=== PATIENT | female | born 1945 | race Caucasian/White ===

== ENCOUNTER 2020-03-29 09:38 | Outpatient (CLI) | payer MEDICARE, SELFPAY ==
--- NOTE | ~2020-03-29 | MM_ITS ---
EXAMINATION: MM screening [facility] BI w dino HISTORY: Screening mammogram TECHNIQUE: Craniocaudal and mediolateral oblique 3-D tomosynthesis images were obtained and synthetic 2-D images were generated. CAD analysis was submitted and interpreted. COMPARISON: 03/24/2019, 03/13/2018, 03/10/2017 bilateral digital screening mammogram examinations BREAST PARENCHYMAL COMPOSITION: The breasts are heterogeneously dense, which may obscure small masses . FINDINGS: Numerous bilateral benign-appearing calcifications are again noted. There is no evidence of suspicious mass, calcification, or architectural distortion to suggest malignancy in either breast. There has been no suspicious interval change. IMPRESSION: 1. No mammographic evidence of malignancy. 2. Recommend routine screening mammography in one year. BI-RADS Category 2: Benign finding(s). Reviewed, dictated and finalized at location A.
== END 2020-03-29 09:39 | disposition home or self-care (01) ==
LOC: ANHIMG 09:41
PROVIDERS: PCP Family Medicine; Visit Provider Obstetrics & Gynecology
DX: Z12.31 Encounter for screening mammogram for malignant neoplasm of breast (principal)
CPT/HCPCS: 77063; 77067

== ENCOUNTER 2021-04-04 11:00 | Outpatient (CLI) | payer MEDICARE, SELFPAY ==
--- NOTE | ~2021-04-04 | MM_ITS ---
EXAMINATION: MM screening teddy BI w dino HISTORY: Screening mammogram TECHNIQUE: Craniocaudal and mediolateral oblique 3-D tomosynthesis images were obtained and synthetic 2-D images were generated. CAD analysis was submitted and interpreted. COMPARISON: No prior mammogram is available for comparison at this institution. BREAST PARENCHYMAL COMPOSITION: The breasts are heterogeneously dense, which may obscure small masses . FINDINGS: Again noted are multiple bilateral benign calcifications. There is no evidence of suspiciou s mass, calcification, or architectural distortion to suggest malignancy in either breast. There has been no suspicious interval change. IMPRESSION: 1. No mammographic evidence of malignancy. 2. Recommend routine screening mammography in one year. BI-RADS Category 2: Benign finding(s). Reviewed, dictated and finalized at location A.
== END 2021-04-04 11:01 | disposition home or self-care (01) ==
LOC: ANHIMG 11:01
PROVIDERS: PCP Family Medicine; Visit Provider Obstetrics & Gynecology
DX: Z12.31 Encounter for screening mammogram for malignant neoplasm of breast (principal)
CPT/HCPCS: 77063; 77067

== ENCOUNTER 2021-05-24 12:32 | Outpatient (CLI) | payer MEDICARE, SELFPAY ==
--- NOTE | ~2021-05-24 | DEXA_ITS ---
Bone Density Report Name: RERE CALIXTO Age: 75 Sex: Female Ethnicity: White Date of : 1945 Indication: osteopenia; monitoring treatment; parental hip fracture; height loss; hysterectomy; Referring Provider: BRIGIDA LEIJA Study: Bone densitometry was performed. Exam Date: May 24, 2021 Accession number: [id number] Bone Density: Region BMD T-score Z-score Classification AP Spine (L1, L4) 0.915 -1.1 1.2 Osteopenia Femoral Neck (Left) 0.619 -2.1 -0.1 Osteopenia Total Hip (Left) 0.744 -1.6 0.1 Osteopenia Total Hip Bilateral Avg 0.716 -1.8 -0.2 Osteopenia Femoral Neck (Right) 0.613 -2.1 -0.1 Osteopenia Total Hip (Right) 0.686 -2.1 -0.4 Osteopenia World Health Organization criteria for BMD impression classify patients as: Normal (T-score at or above -1.0), Osteopenia (T-score between -1.0 and -2.5), or Osteoporosis (T-score at or below -2.5). 10-year Fracture Risk: FRAX not reported because: Treated for osteoporosis Previous Exams: Region Exam Age BMD T-score BMD Change BMD Change Date g/cm2 vs Baseline vs Previous AP Spine(L1, L4) 05/24/2021 75 0.915 -1.1 -0.021(-2.2%)# 0.011(1.2%) 03/24/2019 73 0.904 -1.2 -0.032(-3.4%)# 0.003(0.3%) 03/10/2017 71 0.901 -1.2 -0.034(-3.7%)# -0.003(-0.4%) 02/25/2014 68 0.905 -1.2 -0.031(-3.3%)# -0.002(-0.2%)# 02/05/2012 66 0.907 -1.2 -0.029(-3.1%)# -0.040(-4.3%)# 12/25/2009 64 0.947 -0.8 0.011(1.2%) -0.021(-2.1%) 12/17/2007 62 0.968 -0.6 0.032(3.4%)* 0.001(0.1%) 11/07/2005 60 0.966 -0.6 0.031(3.3%)* 0.053(5.8%)* 01/09/2004 58 0.913 -1.1 -0.023(-2.4%) -0.023(-2.4%) 01/06/2003 57 0.936 -0.9 Total Hip(Left) 05/24/2021 75 0.744 -1.6 -0.031(-4.0%)# 0.018(2.5%) 03/24/2019 73 0.726 -1.8 -0.049(-6.3%)# -0.005(-0.7%) 03/10/2017 71 0.731 -1.7 -0.044(-5.7%)# -0.035(-4.5%)* 02/25/2014 68 0.766 -1.4 -0.009(-1.2%)# -0.023(-2.9%)# 02/05/2012 66 0.789 -1.3 0.014(1.8%)# 0.013(1.7%)# 12/25/2009 64 0.776 -1.4 0.001(0.1%) -0.031(-3.9%)* 12/17/2007 62 0.808 -1.1 0.033(4.2%)* 0.047(6.2%)* 11/07/2005 60 0.760 -1.5 -0.015(-1.9%) -0.014(-1.8%) 01/09/2004 58 0.774 -1.4 -0.001(-0.1%) -0.001(-0.1%) 01/06/2003 57 0.775 -1.4 Total Hip(Right) 05/24/2021 75 0.686 -2.1 -0.086(-11.1%) -0.051(-6.9%)* 03/24/2019 73 0.738 -1.7 -0.034(-4.4%)# -0.005(-0.7%) 03/10/2017 71 0.743 -1.6 -0.029(-3.8%)# -0.005(-0.6%) 02/25/2014 68 0.748 -1.6 -0.024(-3.1%)# -0.034(-4.4%)# 02/05/2012 66 0.782 -1.3 0.010(1.3%)# 0.028(3.6%)# 12/25/2009 64 0.754 -1.5 -0.017(
== END 2021-05-24 12:33 | disposition home or self-care (01) ==
LOC: ANHIMG 12:34
PROVIDERS: PCP Family Medicine; Visit Provider Family Medicine
DX: M85.88 Other specified disorders of bone density and structure, other site (principal); M85.852 Other specified disorders of bone density and structure, left thigh; M85.851 Other specified disorders of bone density and structure, right thigh
CPT/HCPCS: 77080

== ENCOUNTER 2021-11-19 08:48 | Outpatient (CLI) | payer MEDICARE, SELFPAY ==
--- NOTE | 2021-11-19 08:58 | ECHO_ITS ---
Patient Info Name: Callie Diallo Age: 76 years : 1945 Gender: Female Ht: 64 in Wt: 116 lbs BSA: 1.54 m2 HR: 65 bpm BP: 131 / 73 mmHg Heart Rhythm: Sinus Rhythm Technical Quality: Good Exam Date: 11/19/2021 9:09 AM Exam Location: [facility] Patient Status: Outpatient Admit Date: 11/19/2021 Staff Ordering Physician: Kaleb Garcia PA-C Network Security Officer: Zaida Delarosa RDCS Attending Provider: Kaleb Garcia PA-C Referring Physician: Jose REYES; Exam Type: CA echo doppler color flow Study Info Indications I35.0 - Nonrheumatic aortic (valve) stenosis Complete two-dimensional, color flow and Doppler transthoracic echocardiogram is performed. Summary 1. Complete two-dimensional, color flow and Doppler transthoracic echocardiogram is performed. 2. There is mild concentric increased left ventricular wall thickness. 3. Left ventricular systolic function is normal, estimated at 55-60%. 4. Left atrial chamber dimension is mildly enlarged. 5. There is moderate to severe aortic valve stenosis with a peak velocity of 330 cm/s, mean gradient of 27 mmHg, and aortic valve area of 0.9 cm2. Left Ventricle Left ventricular chamber dimension is normal. Left ventricular systolic function is normal, estimated at 55-60%. There is mild concentric increased left ventricular wall thickness. The left ventricular diastolic function is grade I diastolic dysfunction. Right Ventricle Right ventricular chamber dimension is normal. Left Atria Left atrial chamber dimension is mildly enlarged. Right Atria Right atrial chamber dimension is normal. Aortic Valve The aortic valve is trileaflet. There is moderate aortic valve sclerosis. There is moderate to severe aortic valve stenosis with a peak velocity of 330 cm/s, mean gradient of 27 mmHg, and aortic valve area of 0.9 cm2. Pulmonic Valve The pulmonic valve is normal. Mitral Valve The mitral valve has normal leaflets. There is trace mitral valve regurgitation. The mitral valve annulus is mildly calcified. Tricuspid Valve The tricuspid valve leaflets are normal. There is mild tricuspid valve regurgitation. Pericardium/Pleural The pericardium appears normal. Aorta The aortic root size at the sinus of Valsalva is normal. Left Ventricular Outflow Tract Name Value Normal LVOT 2D LVOT Diameter 2.0 cm LVOT Doppler LVOT Peak Gradient 3 mmHg LVOT Mean Gradient 1 mmHg LVOT VTI 24 cm LVOT VTI/AV VTI Ratio 0.3 LVOT Stroke Volume 76 ml LVOT CO 4.1 l/min LVOT CI 2.7 l/min/m2 Pulmonic Valve Name Value Normal RVOT Doppler RVOT Peak Gradient 3 mmHg PV Doppler ----
== END 2021-11-19 08:49 | disposition home or self-care (01) ==
LOC: ANHCARD 08:50
PROVIDERS: PCP Family Medicine; Visit Provider Physician Assistant
DX: I35.0 Nonrheumatic aortic (valve) stenosis (principal)
CPT/HCPCS: 93306

== ENCOUNTER 2022-08-12 13:30 | Outpatient (RCR) | payer MEDICARE, SELFPAY ==
[2022-05-28 11:50] VITALS: PULSE 95
== END 2022-08-12 14:03 | disposition home or self-care (01) ==
LOC: ANHCPREHAB 13:30
PROVIDERS: PCP Family Medicine; Visit Provider Internal Medicine Cardiovascular Disease
DX: Z95.2 Presence of prosthetic heart valve (principal)
CPT/HCPCS: 93798

== ENCOUNTER 2022-09-04 09:58 | Outpatient (CLI) | payer MEDICARE, SELFPAY ==
--- NOTE | ~2022-09-04 | MM_ITS ---
EXAMINATION: MM screening [facility] BI w dino HISTORY: Screening TECHNIQUE: Craniocaudal and mediolateral oblique 3-D tomosynthesis images were obtained and synthetic 2-D images were generated. CAD analysis was submitted and interpreted. COMPARISON: Comparison to multiple prior studies sequentially, with oldest reviewed study dated 03/06. BREAST PARENCHYMAL COMPOSITION: The breasts are heterogeneously dense, which may obscure small masses FINDINGS: There are benign bilateral breast calcifications. Bilateral breast asymmetries are stable. There is no evidence of suspicious mass, calcification, or architectural distortion to suggest malign jennifer in either breast. There has been no suspicious interval change. IMPRESSION: 1. No mammographic evidence of malignancy. 2. Recommend routine screening mammography in one year. BI-RADS Category 2: Benign finding(s). Reviewed, dictated and finalized at location A.
== END 2022-09-04 09:59 | disposition home or self-care (01) ==
LOC: ANHIMG 10:01
PROVIDERS: PCP Family Medicine; Visit Provider Family Medicine
DX: Z12.31 Encounter for screening mammogram for malignant neoplasm of breast (principal)
CPT/HCPCS: 77063; 77067

== ENCOUNTER 2023-05-10 08:18 | Emergency (ER) | payer MEDICARE, SELFPAY ==
[2023-05-10 08:36] VITALS: BP 141/72; PULSE 100; RESP 16; TEMP 37.1; O2SAT 100
--- NOTE | 2023-05-10 08:56 | ED.URI ---
HPI - URI/Sore Throat General Chief Complaint: Upper Respiratory Infection Stated Complaint: Laryngitis;Earache;Toothache Time Seen by Provider: 05/10/23 08:57 Source: patient, RN notes reviewed and old records reviewed Mode of arrival: ambulatory Limitations: no limitations History of Present Illness HPI Narrative: 87-year-old female who presents to [facility] with complaints feeling ill since Friday with increased symptoms since . Patient reports she has cough, sore throat which did resolve, headache some ear pain/pressure,laryngitis, even some pain in her teeth,.Patient reports that she took a home COVID test on Friday which was negative. Patient reports that cough has been productive of some yellowish mucous.Patient reports no known illl contacts but was in [place] last week MD elicited complaint: cough and sore throat Pertinent past history: other (TAVR heart valve one year ago.) Onset (ago): day(s) (4-5 days) Severity: moderate Pain scale (0-10): 2 Description of mucous: yellow Able to tolerate fluids by mouth: Yes Treatments prior to arrival: other (sinus steam) Related Data Home Medications Medication Instructions Recorded Confirmed aspirin 81 mg tablet,delayed 81 mg PO DAILY 04/13/19 07/17/22 release omega-3 fatty acids 1,000 mg 1,000 mg PO DAILY 04/14/20 07/17/22 capsule (Fish Oil Concentrate) docusate sodium 250 mg capsule 250 mg PO DAILY 03/13/22 07/17/22 famotidine 20 mg tablet 20 mg PO DAILY 03/13/22 07/17/22 ijusiyqh-bpy-bcqun ac 400 tablet PO 03/13/22 07/17/22 mcg-calcium carb 500 mg-vit K1 20 mcg tablet (Women's 50 Plus Multivitamin) ascorbate calcium (vitamin C) 500 500 mg PO DAILY 01/22/23 mg tablet Calcium + VitD Supplement PO 02/27/23 Allergies Allergy/AdvReac Type Severity Reaction Status Date / Time No Known Allergies Allergy Verified 01/22/23 13:01 Review of Systems Review of Systems: CONSTITUTIONAL: Reports malaise, no chills, sweats, or fever. EYES: Denies visual changes, redness, or discharge. ENT: Reports rhinorrhea, congestion, sinus pain, otalgia and resolved sore throat. CARDIOVASCULAR: Denies chest pain, palpitations, or edema. RESPIRATORY: Reports cough.? Denies dyspnea. GASTROINTESTINAL: Denies abdominal pain, nausea, vomiting, diarrhea SKIN: Denies rash or itching. MUSCULOSKELETAL:reports some myalgia. NEUROLOGIC: Positive for headache. All systems reviewed & are unremarkable except as noted in HPI and below PMFSH Past Medical History Medical History Aortic stenosis Hyperlipidemia Hypertension Surgical History Surgical History Aortic valve replaced H/O right heart catheterization H/O tubal ligation H/O: hysterectomy Hx of tonsillectomy Family History Family History Mother Family history of elevated blood lipids Hypertension Father Family history of chronic obstructive pulmonary disease, Onset Age: 87 Cerebrovascular accident Other No family history of cardiovascular disease No family history of malignant neoplasm Social History Social History Smoking status: Never smoker Second hand tobacco smoke exposure: No Alcohol intake: never Substance use type: does not use Lack of Transportation: No Lack of Food: Never True Current Housing: I Have Housing Concerned About Future Housing: No Difficulty Paying Gas/Electric Bills: No Difficulty Paying for Meds: No Currently Unemployed: No Education: Bachelor's Degree Difficulty w/ Childcare or Family Care: No Comments At time of signature, agree with nursing past medical, surgical, social and family history. There is no relevant family history pertinent to the presenting complaint Exam Narrative: GEN
== END 2023-05-10 09:18 | disposition home or self-care (01) ==
PROVIDERS: Emergency Provider Registered Nurse; PCP Family Medicine
DX: J06.9 Acute upper respiratory infection, unspecified (principal); R05.9 Cough, unspecified; Z20.822 Contact with and (suspected) exposure to COVID-19; E78.5 Hyperlipidemia, unspecified; I10 Essential (primary) hypertension; Z95.2 Presence of prosthetic heart valve
CPT/HCPCS: 87426; 87804; 99213; C9803; G0463

== ENCOUNTER 2023-07-18 09:40 | Outpatient (CLI) | payer MEDICARE, SELFPAY ==
--- NOTE | ~2023-07-18 | DEXA_ITS ---
Bone Density Report Name: RERE CALIXTO Age: 78 Sex: Female Ethnicity: White Date of : 1945 Indication: postmenopausal; screening for osteoporosis; height loss; hysterectomy; Referring Provider: GAYLA KC Study: Bone densitometry was performed. Exam Date: July 18, 2023 Accession number: [id number] Bone Density: Region BMD T-score Z-score Classification AP Spine(L1-L4) 0.998 -0.4 2.0 Normal Femoral Neck (Left) 0.625 -2.0 0.1 Osteopenia Total Hip (Left) 0.727 -1.8 0.1 Osteopenia Femoral Neck (Right) 0.624 -2.0 0.1 Osteopenia Total Hip (Right) 0.710 -1.9 -0.1 Osteopenia Total Hip Mean 0.718 -1.9 0.0 Osteopenia World Health Organization criteria for BMD impression classify patients as: Normal (T-score at or above -1.0), Osteopenia (T-score between -1.0 and -2.5), or Osteoporosis (T-score at or below -2.5). 10-year Fracture Risk(1): Major Osteoporotic Fracture 12% Hip Fracture 3.1% Reported Risk Factors: [place] (), Neck BMD=0.625, BMI=20.6 (1) FRAX(R) Version 3.08. Fracture probability calculated for an untreated patient. Fracture probability may be lower if the patient has received treatment. Clinical Information Provided by Patient: Has used the following medications: Vitamin D, Calcium Has the following medical conditions: Hysterectomy Patient maximum height was 65.5 Menopause Age: 52 Onset of menses at age 14 Number of children 3 Impression: The patient has low bone mass, based on the Left Femoral Neck T-score. The patient has an estimated ten-year risk of hip fracture of 3.1% and an estimated ten-year risk of major fracture of 12%, based on the WHO FRAX algorithm. Discussion: BONE DENSITY IS LOW AT ONE OR MORE SKELETAL SITES. THE PATIENT'S BMD AND CLINICAL RISK FACTORS CONTRIBUTE TO THIS PATIENT'S INCREASED RISK OF FRACTURE. This patient's lowest T-score is low at one or more skeletal sites. It meets the World Health Organization's (WHO) criteria for ?low bone mass? (T-score between -1.0 and -2.5). The patient's 10-year risk of hip fracture as calculated by FRAX exceeds the threshold where pharmacological therapy is recommended by the National Osteoporosis Foundation (NOF). However, all treatment decisions require clinical judgment and consideration of individual patient factors, including patient preferences, comorbidities, previous drug use, risk factors not captured in the FRAX model (e.g., frailty, falls, vitamin D deficiency, increased bone turnover, interval significant decline in bone density) and possible under or overestimation of fracture risk by FRAX. The patient should follow a healthful lifestyle (good nutrition with adequate calcium and vitamin D, and appropriate weight-bearing exercise). Follow-Up: Consider a repeat BMD and Vert
== END 2023-07-18 09:41 | disposition home or self-care (01) ==
PROVIDERS: PCP Family Medicine; Visit Provider Family Medicine
DX: Z78.0 Asymptomatic menopausal state (principal); M85.852 Other specified disorders of bone density and structure, left thigh; M85.851 Other specified disorders of bone density and structure, right thigh
CPT/HCPCS: 77080

== ENCOUNTER 2023-10-01 14:19 | Outpatient (CLI) | payer MEDICARE, SELFPAY ==
--- NOTE | ~2023-10-01 | MM_ITS ---
EXAMINATION: MM screening teddy BI w dino HISTORY: Screening mammogram TECHNIQUE: Craniocaudal and mediolateral oblique 3-D tomosynthesis images were obtained and synthetic 2-D images were generated. CAD analysis was submitted and interpreted. COMPARISON: 09/04/2022, 04/04/2021 bilateral screening mammogram examinations BREAST PARENCHYMAL COMPOSITION: The breasts are heterogeneously dense, which may obscure small masses . FINDINGS: Numerous bilateral benign calcifications are again noted. There is no evidence of suspiciou s mass, calcification, or architectural distortion to suggest malignancy in either breast. There has been no suspicious interval change. IMPRESSION: 1. Bilateral benign calcifications. No mammographic evidence of malignancy. 2. Recommend routine screening mammography in one year. BI-RADS Category 2: Benign finding(s). Reviewed, dictated and finalized at location A.
== END 2023-10-01 14:20 | disposition home or self-care (01) ==
LOC: ANHIMG 14:21
PROVIDERS: PCP Family Medicine; Visit Provider Family Medicine
DX: Z12.31 Encounter for screening mammogram for malignant neoplasm of breast (principal)
CPT/HCPCS: 77063; 77067

== ENCOUNTER 2023-12-10 13:39 | Outpatient (CLI) | payer MEDICARE, SELFPAY | END 2023-12-10 13:40 | disposition home or self-care (01) | LOC: ANHAUDASC 13:40 | PROVIDERS: PCP Family Medicine; Visit Provider Otolaryngology | DX: H90.3 Sensorineural hearing loss, bilateral (principal); H69.90 Unspecified Eustachian tube disorder, unspecified ear; N18.31 Chronic kidney disease, stage 3a | CPT/HCPCS: 92557; 92567 ==

== ENCOUNTER 2024-07-23 08:07 | Emergency (ER) | payer MEDICARE, SELFPAY ==
[2024-07-23 08:23] VITALS: BP 126/44; PULSE 77; RESP 16; TEMP 36.6; O2SAT 100
--- NOTE | 2024-07-23 08:27 | ED.URI ---
HPI - URI/Sore Throat General Chief Complaint: Upper Respiratory Infection Stated Complaint: COUGH/CHEST PAIN Time Seen by Provider: 07/23/24 08:27 Source: patient Mode of arrival: ambulatory Limitations: no limitations History of Present Illness HPI Narrative: 79-year-old female presents with complaint of cough, chest congestion starting yesterday morning. Today woke up around 4:00 a.m. cough worse with chest pain with coughing. Was able to cough up some clear sputum. Afebrile. Denies body aches, chills, fatigue. No nasal congestion or sore throat. Denies nausea vomiting diarrhea. Has not started any ywgw-lue-fhonblb medications to treat cough. Does have an albuterol inhaler for the last time she had bronchitis. All systems reviewed and negative except as noted above. Related Data Home Medications ?Medication ?Instructions ?Recorded ?Confirmed ?Last Taken ?Type aspirin 81 mg tablet,delayed 81 mg PO DAILY 04/13/19 02/12/24 Unknown History release omega-3 fatty acids 1,000 mg 1,000 mg PO DAILY 04/14/20 02/12/24 Unknown History capsule (Fish Oil Concentrate) famotidine 20 mg tablet 20 mg PO DAILY 03/13/22 02/12/24 Unknown History ywlwkydo-mnc-lmamp ac 400 tablet PO 03/13/22 02/12/24 Unknown History mcg-calcium carb 500 mg-vit K1 20 mcg tablet (Women's 50 Plus Multivitamin) ascorbate calcium (vitamin C) 500 500 mg PO DAILY 01/22/23 02/12/24 Unknown History mg tablet Calcium + VitD Supplement PO 02/27/23 02/12/24 Unknown History Saccharomyces boulardii 250 mg 250 mg PO BID 12/02/23 02/12/24 Unknown History capsule (Daily Probiotic (S. boulardii)) coQ10 (ubiquinol) 100 mg capsule 100 mg PO ONCE 02/12/24 02/12/24 Unknown History (Qunol Timothy CoQ10) cranberry 1,000 mg capsule 1,500 mg PO ONCE 02/12/24 02/12/24 Unknown History magnesium 200 mg tablet 400 mg PO DAILY 02/12/24 02/12/24 Unknown History prevagen PO 02/12/24 02/12/24 Unknown History apixaban 5 mg tablet (Eliquis) 10 mg PO BID 05/14/24 Unknown History Allergies Allergy/AdvReac Type Severity Reaction Status Date / Time No Known Allergies Allergy Verified 07/23/24 08:18 Review of Systems Review of Systems: CONSTITUTIONAL: Denies fever, chills, or sweats. EYES: Denies visual changes, redness, or discharge. ENT: Denies rhinorrhea, congestion, sore throat, or otalgia. CARDIOVASCULAR: Denies chest pain, palpitations, or edema. RESPIRATORY: Reports cough. Denies dyspnea. GASTROINTESTINAL: Denies abdominal pain, nausea, vomiting, or diarrhea. GENITOURINARY: Denies dysuria or hematuria. SKIN: Denies rash or itching. MUSCULOSKELETAL: Denies back pain, joint pain, or myalgia. NEUROLOGIC: Denies headache, numbness, or weakness. PSYCHIATRIC: Denies anxiety or depression. All other systems reviewed are negative, except as documented in HPI. COUNT INCLUDES THE [facility] Past Medical History Medical History Acute bronchitis Aortic stenosis Cataracts, bilateral Hyperlipidemia Hypertension Sinusitis, acute Surgical History Surgical History Aortic valve replaced H/O right heart catheterization H/O tubal ligation H/O: hysterectomy Hx of tonsillectomy Family History Family History Mother Family history of elevated blood lipids Hypertension Father Family history of chronic obstructive pulmonary disease, Onset Age: 87 Cerebrovascular accident Other No family history of cardiovascular disease No family history of malignant neoplasm Social History Social History Smoking status: Never smoker Second hand tobacco smoke exposure: No Alcohol intake: never Substance use type: does not use Do You Feel Safe in your Home?: Yes Lack of Transportation: No Lack of Food: Never True Current Housing: I Have Housing Concerned About Future Housing: No Difficulty Paying Gas/Electric Bills: No Difficulty Paying for Meds: No Currently Unemployed: No Education: Bachelor's Degree Difficulty w/ Childcare or Family Care: No Comments At time of signature, agree with nursing past medical, surgical, social and family history. There is no relevant family history pertinent to the presenting complaint. Exam Narrative: GENERAL: This is a well-nourished, well-developed patient, in no apparent distress. HEAD: normocephalic, atraumatic. EYES: PERRL. Sclera clear/white. Vision is grossly intact. EARS: External ears normal, auditory canals clear and without drainage, TMs normal without perforation. Hearing grossly intact. NOSE: External nose normal with no obvious nasal discharge, nares without redness, no rhinorrhea. THROAT: Mucous membranes moist, posterior pharynx clear. NECK: Neck supple, non-tender without lymphadenopathy, masses or thyromegaly. CARDIOVASCULAR: Regular rate and rhythm without murmurs, gallops, or rubs. RESPIRATORY: Mild rhonchi to bilateral lower lung zaragoza on expiration otherwise clear. Breath sounds equal bilaterally. No wheezes, rales. SKIN: warm, Dry, intact with no suspicious lesions or rash, good texture and turgor. NEURO: awake, alert, and oriented to person, place and time. There were no obvious focal neurologic abnormalities. EXTREMITIES: No joint tenderness, effusion, or edema noted. Course Course Level of Care: Express Care Visit Vital Signs Vital signs: Vital Signs Temperature 36.6 C 07/23/24 08:23 Pulse Rate 77 07/23/24 08:23 Respiratory Rate 16 07/23/24 08:23 Blood Pressure 126/44 L 07/23/24 08:23 Pulse Oximetry 100 07/23/24 08:23 Temperature 36.6 C 07/23/24 08:23 Pulse Rate 77 07/23/24 08:23 Respiratory Rate 16 07/23/24 08:23 Blood Pressure 126/44 L 07/23/24 08:23 Pulse Oximetry 100 07/23/24 08:23 Reviewed MDM - URI/Sore Throat MDM Narrative Medical decision making narrative: Patient is well-appearing, nontoxic. No respiratory distress. Vital Signs hemodynamically stable. Will treat patient with antibiotic due to history bronchitis, comorbidities. Patient agrees with plan of care. Please be advised this is a medical document. It is intended for mzzv-xy-cwgg communication. It is written in medical language and may contain unfamiliar abbreviations or verbiage. Medical documents are intended to carry relevant information, facts as evident, and the clinical opinion of the practitioner at the time of the encounter. This report may have been done utilizing a voice recognition system. Attempts have been made to correct errors. However, there may be uncorrected grammatical, spelling, and recognition errors present. The file time of this note does not necessarily represent the time of service. Differential Diagnosis Differential diagnosis: Likely upper respiratory infection, sinusitis, viral infection and bronchitis Discharge Plan Discharge Clinical Impression: Acute bronchitis Patient Disposition: Home, Self-Care Condition: Stable Instructions: Acute Bronchitis (ED) Additional Instructions: Take medications as prescribed. Use albuterol inhaler every 4-6 hours as needed for wheezing, shortness of breath, coughing fit. Take Tylenol every 6-8 hours as needed for pain and fever. Drink plenty of water and rest. Follow-up with your doctor if cough is not improving. Patient Language: Kyrgyz Prescriptions: New benzonatate 200 mg capsule 200 mg PO TID PRN (Reason: cough) Qty: 20 0RF doxycycline hyclate 100 mg capsule 100 mg PO BID 7 Days Qty: 14 0RF No Action omega-3 fatty acids [Fish Oil Concentrate] 1,000 mg capsule 1,000 mg PO DAILY Rx Instructions: 1400 total daily Women's 50 Plus Multivitamin 400 mcg-500 mg calcium-20 mcg tablet PO famotidine 20 mg tablet 20 mg PO DAILY ascorbate calcium (vitamin C) 500 mg tablet 500 mg PO DAILY Saccharomyces boulardii [Daily Probiotic (S. boulardii)] 250 mg capsule 250 mg PO BID magnesium 200 mg tablet 400 mg PO DAILY lisinopril 5 mg tablet See Rx Instructions .ROUTE .COMPLEX Qty: 90 3RF Dose Instruction: TAKE 1 TABLET BY MOUTH EVERY DAY Rx Instructions: take 2.5mg in the AM and 2.5mg in the PM cranberry 1,000 mg capsule 1,500 mg PO ONCE Rx Instructions: administer with meals prevagen PO coQ10 (ubiquinol) [Qunol Timothy CoQ10] 100 mg capsule 100 mg PO ONCE Eliquis 5 mg tablet 10 mg PO BID aspirin 81 mg tablet,delayed release (DR/EC) 81 mg PO DAILY Calcium + VitD Supplement PO ikvlksdm-rmeziogem-BX 3.5-10,000-1 mg/mL-unit/mL-% drops,suspension 4 drp otic (ear) Q8H Qty: 10 2RF atorvastatin 10 mg tablet See Rx Instructions .ROUTE .COMPLEX Qty: 90 3RF Dose Instruction: TAKE 1 TABLET BY MOUTH EVERY DAY Rx Instructions: TAKE 1 TABLET BY MOUTH EVERY DAY Follow-up/Referrals: Radha Herman DO [Primary Care Provider] - Time of Disposition: 08:39
== END 2024-07-23 08:41 | disposition home or self-care (01) ==
PROVIDERS: Emergency Provider Nurse Practitioner Family; PCP Family Medicine
DX: J20.9 Acute bronchitis, unspecified (principal); I35.0 Nonrheumatic aortic (valve) stenosis; I10 Essential (primary) hypertension; E78.5 Hyperlipidemia, unspecified; Z95.2 Presence of prosthetic heart valve; Z79.01 Long term (current) use of anticoagulants
CPT/HCPCS: 99213; G0463

== ENCOUNTER 2024-12-02 13:45 | Outpatient (RCR) | payer MEDICARE, SELFPAY ==
[2024-09-10 15:08] VITALS: BP 140/70; PULSE 55; RESP 16; O2SAT 99
[2024-09-10 15:31] VITALS: PULSE 55
== END 2024-12-02 15:30 | disposition home or self-care (01) ==
LOC: ANHCPREHAB 13:45
PROVIDERS: PCP Family Medicine; Visit Provider Internal Medicine Cardiovascular Disease
DX: Z95.2 Presence of prosthetic heart valve (principal)
CPT/HCPCS: 93798

== ENCOUNTER 2025-01-20 14:17 | Outpatient (CLI) | payer MEDICARE, SELFPAY ==
--- NOTE | ~2025-01-20 | US_ITS ---
EXAM: RENAL ULTRASOUND HISTORY: N18.31 - Chronic kidney disease, stage 3a COMPARISON: None FINDINGS: RIGHT KIDNEY: 9.6 x 5.2 x 5.0 cm. The parenchyma of the right kidney is increased in echogenicity nodular in contour and decreased in c aliber. No hydronephrosis or bulky renal calculi. LEFT KIDNEY: 9.5 x 3.9 x 5.1 cm No hydronephrosis or renal calculi. The parenchyma of the left kidney is increased in echogenicity, and decreased in caliber. BLADDER: Bilateral ureteral jets visualized. IMPRESSION: No hydronephrosis or renal calculi. Findings suggesting medical renal disease. Reviewed, dictated and finalized at location A.
--- OUTSIDE RECORDS SUMMARY | 2025-01-20 14:22 | XMS_ITS | Clinical Summary ---
Author Organization [facility] [address] Address [address] [place] [address] Care Team Providers Care Cvir Tech Name Role Phone Radha Herman DO Primary Care Provider + Bryan Nick MD Unavailable Rusty Zelaya MD Unavailable [phone] Allergies No known active allergies Medications famotidine (PEPCID) 20 mg tabletIndicatio ns:Heartburn Prevention Take 1 tablet (20 mg total) by mouth daily 11/07/2021 Active multivitamin capsuleIndicati ons:Vitamin Deficiency Prevention Take 1 capsule by mouth daily Active calcium carbonate-vitam in D3 2,500 mg (1,000 mg elemental)-800 unit tabletIndicatio ns:Vitamin D Deficiency Take 1 tablet by mouth daily Active ascorbic acid (VITAMIN C) 500 mg tablet,chewable Indications:Vit dejesus C Deficiency Take 2 tablet/chew tab (1,000 mg total) by mouth daily Active Lactobacillus reuteri 100 million cell tablet,chewable Take 1 tablet by mouth daily Active magnesium oxide 400 mg magnesium capsuleIndicati ons:hypomagnese ana luisa Take 200 mg by mouth daily Active aspirin 81 mg enteric coated tabletIndicatio ns:prevention of thrombosis Take 1 tablet (81 mg total) by mouth daily Active omega 6-kdz-asn-fish oil 850-1,400 mg capsuleIndicati ons:hypertrigly ceridemia Take by mouth Active cranberry extract 50 mg tablet,chewable Take by mouth Active ofloxacin (OCUFLOX) 0.3 % ophthalmic solution 1 drop 4 (four) times a day 08/03/2024 Active atorvastatin (LIPITOR) 10 mg tabletIndicatio ns:hyperlipidem ia Take 1 tablet (10 mg total) by mouth daily 90 tablet 3 09/20/2024 Active lisinopriL (PRINIVIL,ZESTR IL) 2.5 mg tablet Take 1 tablet (2.5 mg total) by mouth daily 09/04/2024 Active carvediloL (COREG) 12.5 mg tabletIndicatio ns:hypertension Take 0.5 tablets (6.25 mg total) by mouth 2 (two) times a day with meals 90 tablet 1 11/29/2024 Active Active Problems Patient Care Coordination No te Formatting of this note migh t be different from the original. 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 She underwent TAVR valve using 20 mm Graves Merced 3 Ultra pericardial tissue valve on 04/25/2022. Surveillance echocardiogram from 01/28/2024 showed significantly elevated transaortic velocity at 4 m/sec with elevated mean gradient of 37 mmHg, [id number] aortic regurgitation. Subsequent CT heart confirmed hypoattenuating leaflet thickening (HALT). Patient was initiated on anticoagulation with apixaban. Follow up echo from 06/30/2024 showed very minimal improvement in V max and mean gradient, Peak Velocity of 3.90 m/s and Mean gradient of 34.0 mmHg. Patient describes shortness of breath with minimal activity around the house and has to pause and catch her breath frequently. Exam: Gen: awake and alert, sitting up in chair. 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 Medical [facility] Cardiology [address] [place] [address] Bryan Nick MD 10/22/2024 Results Follow-Up [facility] [address] [facility] [address] [place] [phone] Bryan Nick MD Transthoracic Echo (TTE) Complete W Doppler/CF 10/21/2024 3:00 PM CDT Ancillary Procedure [facility] Card[facility] [address] [place] [phone] S/P aortic valve replacement with bioprosthetic valve from Last 3 Months Immunizations Immunization Administration Dates Next Due Influenza, Quadrivalent, Hig h Dose, Preservative Free, Intrr 02/11/2022,02/05/2021 Influenza, Quadrivalent, Rec ombinant, Egg Free, Preservative Free, Intramuscular 02/25/2019 Influenza, Trivalent, High D ose, Split, Preservative Free, Intramuscular 02/20/2018 TD Preservative Free 08/06/2019 ZOSTER Recombinant 07/26/2019 Surgical History Surgery Date Site/Laterality Comments HYSTERECTOMY 09/23/2016 TUBAL LIGATION 03/20/1979 BLADDER SURGERY 09/23/2016 suspension CARDIAC CATHETERIZATION TONSILLECTOMY CARDIAC VALVE REPLACEMENT 04/25/2022 CATARACT EXTRACTION 03/24&04/01/23 AORTIC VALVE REPLACEMENT 08/11/2024 Redo aortic valve replacement Medical History Medical History Date Comments GERD (gastroesophageal reflux disease) Cataract 12/31/2017 Hypertension 06/09/2008 Nonrheumatic aortic valve stenosis SOBOE (shortness of breath on exertion) Arthritis 2011 Family History Medical History Relation Name Comments COPD Father Tio Lopez Hypertension Father Tio Lopez Stroke Father Tio Lopez Arthritis Mother Pretty Lopez Hypertension Mother Pretty Lopez Relation Name Status Comments Father Tio Lopez Mother Pretty Lopez Social History Tobacco Use Types Packs/Day Years Used Date Smoking Tobacco: Never Passive Smoke Exposure: Never Smokeless Tobacco: Never Tobacco Cessation:Counseling Given: No OASIS D0700: Social Isolation Answer Da te Recorded Frequency of experiencing loneliness or isolatio n Never 09/07/2024 OASIS A1250: Transportation Answer Date Recorded Lack of Transportation (Medical) No 09/07/2024 Lack of Transportation (Non-Medical) No 09/07/2024 Patient Unable or Declines to Respond No 09/07/2024 OASIS B1300: Health Literacy Answer Raj e Recorded Frequency of needing help to read materials from doctor or pharmacy Sometimes 09/07/2024 [facility] Utilities Answer Date Recorded In the past 12 months has e electric, gas, oil, or water [employer] threatened to shut off services in your home? No 08/12/2024 Social Connection and Isolation Panel Answer Date Recorded In a typical week, how many times do you talk on the phone with family, friends, or neighbors? More than three times a week 08/12/2024 How often do you get togethe r with friends or relatives? More than three times a week 08/12/2024 How often do you attend chur ch or sikh services? More than 4 times per year 08/12/2024 Do you belong to any clubs o r organizations such as samaritan groups, unions, fraternal or athletic groups, or school groups? Yes 08/12/2024 How often do you attend meet ings of the clubs or organizations you belong to? More than 4 times per year 08/12/2024 Are you , , di vorced, , never , or living with a partner? 08/12/2024 AUDIT-C Answer Date Recorded Q1: How often do you have a drink containing alcohol? Never 08/11/2024 Q2: How many drinks containi ng alcohol do you have on a typical day when you are drinking? Patient does not drink Q3: How often do you have si x or more drinks on one occasion? Never 08/11/2024 Overall Financial Resource Strain (CARDIA) Answe r Date Recorded How hard is it for you to pa y for the very basics like food, housing, medical care, and heating? Not hard at all 08/12/2024 Hunger Vital Sign Answer Date Recorded Within the past 12 months, y ou worried that your food would run out before you got the money to buy more. Never true 08/13/19 25 Within the past 12 months, t he food you bought just didn't last and you didn't have money to get more. Never true 08/12/2024 PRAPARE - Transportation Answer Date Re corded In the past 12 months, has l ack of transportation kept you from medical appointments or from getting medications? No 11/2024 In the past 12 months, has l ack of transportation kept you from meetings, work, or from getting things needed for daily living? No 08/12/2024 Housing Stability Vital Sign Answer Raj e Recorded In the last 12 months, was t here a time when you were not able to pay the mortgage or rent on time? No 08/12/2024 Number of Times Moved in the Last Year Not on fi le 08/12/2024 At any time in the past 12 m [facility], were you homeless or living in a half-way (including now)? No 08/12/2024 Personal Safety Answer Date Recorded Have you ever been in or are you currently in a harmful physical or emotional relationship or is someone making you feel afraid or unsafe? Denies 08/11/2024 Comments No Sex and Gender Information Value Date Recorded Sex Assigned at Not on file Legal Sex Female 1:03 AM [employer] Gender Identity Female 03/30/2021 12:11 PM CDT Sexual Orientation Straight 03/30/2021 12 :11 PM CDT Obstetrics History Last Filed Vital Signs Vital Sign Reading Time Taken Comments Blood Pressure 148/79 09/20/2024 9:39 AM CDT Pulse 62 09/20/2024 9:39 AM CDT Temperature 36.7 C (98.1 F) 09/07/2024 10:42 AM CDT Respiratory Rate 18 09/20/2024 9:39 AM CDT Oxygen Saturation 100% 09/20/2024 9:39 AM CDT Inhaled Oxygen Concentration - - Weight 55.4 kg (122 lb 3.2 oz) 09/20/2024 9:39 A M CDT Height 165.1 cm (5' 5) 09/20/2024 9:39 AM CDT Body Mass Index 20.34 09/20/2024 9:39 AM CDT Plan of Treatment Health Maintenance Due Date Last Done Comments Depression Screening 1945 Hepatitis C Screening 1945 Osteoporosis Screening-Bone Density Scan 1945 Hepatitis B Screening 1965 Pneumococcal vaccine 65+ (1 of 1 - PCV) 1997 Well Visit 65+ 2012 DTaP/Tdap/Td Vaccine (1 - Tdap) 08/07/2019 0 Zoster Vaccine (2 of 2) 09/20/2019 07/26/2019 Covid-19 Vaccine (4 - 2023-2 5 season) 2024 04/04/2021, 08/09/2020, 07/12/2020 Influenza Vaccine (#1) 2025 , 02/11/2022, 02/05/2021, Additional history exists Fall Risk Assessment 08/15/2025 08/15/2024 Medical Devices Implanted Type Area Pit Clerk Device Identifier Shelf Expiration Date Model / Serial / Lot [employer] Device Closure Tigertape Sternal Cerclage Blunt Needle [id number] - [id number] Implanted:Qty: 2 on 08/11/2024 by Rusty Zelaya MD at [facility] Wire [employer] 06/08/2029 [id number] / / [id number] [employer] Device Clsr Perclose Prostyle Sut-Mediatd Closure-Repair Sys [id number] - [id number] Implanted:Qty: 1 on 04/25/2022 by Bryan Nick MD at [facility] [employer] [id number] / / [employer] Valve 20mm Aortic Merced 3 Commander Graves Transcatheter Ultra Low Profile [id number] - [id number] Implanted:Qty: 1 on 04/25/2022 by Bryan Nick MD at [facility] [employer] 10/17/2024 [id number] / / [id number] Access [employer]osure [employer] Mynx Control 6-7fr 2 Mode Balloon Catheter Sealant Lock Syringe [id number] - [id number] Implanted:Qty: 1 on 04/25/2022 by Bryan Nick MD at [facility] [employer] 12/07/2023 [id number] / / [id number] [employer]esciences Inspiris Resilia Aortic Valve 21mm [id number] - [id number] - [id number] Implanted:Qty: 1 on 08/11/2024 by Rusty Zelaya MD at [facility] [employer] 02/25/2027 [id number] / [id number] / Procedures Procedure Name Priority Date/Time Associated Diagnosis Comments TRANSTHORACIC ECHO (TTE) COMPLETE W DOPPLER/CF WO CONTRAST Routine 10/21/2024 4:16 PM CDT S/P aortic valve replacement with bioprosthetic valve from Last 3 Months Results * TRANSTHORACIC ECHO (TTE) COMPLETE W DOPPLER/CF WO CONTRAST (10/21/2024 4:16 PM CDT) Estimated EF 70-75 % CONS SCIMAGE EF Mod BP 76 % CONS SCIMAGE Anatomical Region Laterality Modality Ultrasound 10/21/2024 3:20 PM CDT Narrative 10/21/2024 5:[address] [facility] Medical Group Cardiology [address] [facility] [address], [place] [address] [address] [facility] [address], [place] [address] P:[phone] P:[phone] Echocardiographic Report Patient Name: CALLIE CALIXTO A : 1945 Study Date: 10/21/2024 3:20:32 PM Gender: F Tech: [facility] Location: [place] Ref Provider: BRYAN NICK Height(Cm): 165 BSA: 1.59 Weight(Kg): 55.3 Heart Rate: 61 BP: 148 / 79 Quality: Good Order Provider: BRYAN NICK PROCEDURES: Echocardiographic Report: Transthoracic echocardiogram with complete 2D, M-Mode, and color Doppler examination. With Strain Analysis. INDICATIONS: S/P Aortic Valve Replacement (Bioprosthetic). MEASUREMENTS: 2D/MM Value Range Doppler Value Range EF Mod BP 76 % [ 54 - 74 ] HECTOR Vmax 1.55 cm2 [ 2.00 - 4.00 ] EF Teich MM 72 % [ 54 - 74 ] AV Mean PG 14 mmHg Estimated EF 70-75 % AV Peak Gregory 2.49 m/s [ 1.00 - 1.70 ] LVIDd 2D 3.94 cm [ 3.80 - 5.20 ] AV Peak PG 25 mmHg LVIDd MM 3.95 cm [ 3.80 - 5.20 ] AV VTI 55.75 cm LVIDs 2D 2.45 cm [ 2.20 - 3.50 ] LVOT Diam 2.10 cm [ 1.70 - 2.10 ] LVIDs MM 2.34 cm [ 2.20 - 3.50 ] LVOT Peak Gregory 1.12 m/s [ 0.70 - 1.10 ] LVPWd 2D 1.18 cm [ 0.60 - 0.90 ] LVOT VTI 27.35 cm LVPWd MM 0.98 cm [ 0.60 - 0.90 ] MV E Peak Gregory 1.14 m/s [ 0.60 - 1.30 ] IVSd 2D 1.17 cm [ 0.60 - 0.90 ] MV A Peak Gregory 1.35 m/s [ 1.00 - 1.20 ] IVSd MM 1.01 cm [ 0.60 - 0.90 ] MV Mean PG 3 mmHg [ 0 - 5 ] LA Dimension 2D 3.84 cm [ 2.70 - 3.80 ] MV PHT 103 msec [ 20 - 100 ] LA Dimension MM 4.76 cm [ 2.70 - 3.80 ] MVA PHT 2.14 cm2 [ 2.00 - 4.00 ] AoR Diam 2D 2.30 cm [ 2.70 - 3.70 ] MV Decel Time 283 msec [ 104 - 258 ] AoR Diam MM 2.65 cm [ 2.70 - 3.70 ] PV Peak Gregory 0.87 m/s [ 0.40 - 0.80 ] LA Volume Index 34 cc/m2 [ 16 - 34 ] TR Peak Gregory 2.35 m/s [ 1.00 - 2.80 ] TR Peak PG 22 mmHg RVSP 25.00 mmHg [ 10.00 - 36.00 ] Lateral E` 0.08 m/s [ 0.10 - 0.15 ] E` 0.05 m/s E/E` 14 2D/MM Value Range Doppler Value Range - FINDINGS: Interpretation Site: Exam was interpreted at [facility]. Left Ventricle: Normal left ventricular systolic function. No focal wall motion abnormalities. Normal left ventricular size. Mild concentric left ventricular hypertrophy. Impaired diastolic relaxation Grade I. Ejection fraction is measured at 76 %. Ejection Fraction is visually estimated to be 70-75 %. Global Longitudinal Strain is -17 %. GLS is borderline. Right Ventricle: Normal right ventricular size. Normal right ventricular systolic function. Left Atrium: There is moderate enlargement of left atrium. Right Atrium: The right atrium is normal in size. Atrial Septum: Normal atrial septum. Mitral Valve: Moderate mitral annular calcification. Mild mitral valve regurgitation. There is no hemodynamically significant mitral stenosis by Doppler. Aortic Valve: Mean gradient of 14.0 mmHg. Valve area of 1.6 cm2. Trace aortic valve regurgitation. Gradients normal for valve type and size. Normal appearing aortic valve bioprosthesis. Tricuspid Valve: Normal appearance of the tricuspid valve. Normal right ventricular systolic pressure. Estimated peak RVSP is 25 mmHg. Mild tricuspid regurgitation. Pulmonic Valve: Normal appearance of the pulmonic valve. No pulmonic stenosis. Trivial regurgitation in the pulmonic valve. Pericardium: Normal pericardium with no significant pericardial effusion. Aorta: No aortic root dilation. IVC: Normal size and normal respiratory collapse consistent with normal right atrial pressure (<5 mmHg). CONCLUSIONS: Normal left ventricular systolic function. No focal wall motion abnormalities. Normal left ventricular size. Mild concentric left ventricular hypertrophy. Impaired diastolic relaxation Grade I. Ejection fraction is measured at 76 %. Ejection Fraction is visually estimated to be 70-75 %. Global Longitudinal Strain is -17 %. GLS is borderline. There is moderate enlargement of left atrium. Moderate mitral annular calcification. Mild mitral valve regurgitation. Mean gradient of 14.0 mmHg. Valve area of 1.6 cm2. Trace aortic valve regurgitation. Gradients normal for valve type and size. Normal appearing aortic valve bioprosthesis. Mild tricuspid regurgitation. Normal sinus rhythm. Electronically Signed By: Maxim Terrell MD 10/21/2024 5:06:26 PM CDT Procedure Note Maxim Terrell MD - 10/21/2024 [facility] Medical Group Cardiology [address] [facility] [address], [place] [address] [address] [facility] [address], [place] [address] P:[phone] P:[phone] Echocardiographic Report Patient Name: CALLIE CALIXTO A : 1945 Study Date: 10/21/2024 3:20:32 PM Gender: F Tech: [facility] Location: [facility] Provider: BRYAN NICK Height(Cm): 165 BSA: 1.59 Weight(Kg): 55.3 Heart Rate: 61 BP: 148 / 79 Quality: Good Order Provider: BRYAN NICK PROCEDURES: Echocardiographic Report: Transthoracic echocardiogram with complete 2D, M-Mode, and color Dopplerexamination. With Strain Analysis. INDICATIONS: S/P Aortic Valve Replacement (Bioprosthetic). MEASUREMENTS: 2D/MM Value Range Doppler ValueRange EF Mod BP 76 % [ 54 - 74 ] HECTOR Vmax 1.55cm2 [ 2.00 - 4.00 ] EF Teich MM 72 % [ 54 - 74 ] AV Mean PG 14mmHg Estimated EF 70-75 % AV Peak Gregory 2.49m/s [ 1.00 - 1.70 ] LVIDd 2D 3.94 cm [ 3.80 - 5.20 ] AV Peak PG 25mmHg LVIDd MM 3.95 cm [ 3.80 - 5.20 ] AV VTI 55.75cm LVIDs 2D 2.45 cm [ 2.20 - 3.50 ] LVOT Diam 2.10 cm[ 1.70 - 2.10 ] LVIDs MM 2.34 cm [ 2.20 - 3.50 ] LVOT Peak Gregory 1.12m/s [ 0.70 - 1.10 ] LVPWd 2D 1.18 cm [ 0.60 - 0.90 ] LVOT VTI 27.35cm LVPWd MM 0.98 cm [ 0.60 - 0.90 ] MV E Peak Gregory 1.14m/s [ 0.60 - 1.30 ] IVSd 2D 1.17 cm [ 0.60 - 0.90 ] MV A Peak Gregory 1.35m/s [ 1.00 - 1.20 ] IVSd MM 1.01 cm [ 0.60 - 0.90 ] MV Mean PG 3 mmHg[ 0 - 5 ] LA Dimension 2D 3.84 cm [ 2.70 - 3.80 ] MV PHT 103msec [ 20 - 100 ] LA Dimension MM 4.76 cm [ 2.70 - 3.80 ] MVA PHT 2.14cm2 [ 2.00 - 4.00 ] AoR Diam 2D 2.30 cm [ 2.70 - 3.70 ] MV Decel Time 283msec [ 104 - 258 ] AoR Diam MM 2.65 cm [ 2.70 - 3.70 ] PV Peak Gregory 0.87m/s [ 0.40 - 0.80 ] LA Volume Index 34 cc/m2 [ 16 - 34 ] TR Peak Gregory 2.35m/s [ 1.00 - 2.80 ] TR Peak PG 22 mmHg RVSP 25.00 mmHg [ 10.00 - 36.00 ] Lateral E` 0.08 m/s [ 0.10 - 0.15 ] E` 0.05 m/s E/E` 14 2D/MM Value Range Doppler ValueRange - FINDINGS: Interpretation Site: Exam was interpreted at [facility]. Left Ventricle: Normal left ventricular systolic function. No focal wall motionabnormalities. Normal left ventricular size. Mild concentric left ventricular hypertrophy.Impaired diastolic relaxation Grade I. Ejection fraction is measured at 76 %. EjectionFraction is visually estimated to be 70-75 %. Global Longitudinal Strain is -17 %. GLS isborderline. Right Ventricle: Normal right ventricular size. Normal right ventricular systolicfunction. Left Atrium: There is moderate enlargement of left atrium. Right Atrium: The right atrium is normal in size. Atrial Septum: Normal atrial septum. Mitral Valve: Moderate mitral annular calcification. Mild mitral valve regurgitation.There is no hemodynamically significant mitral stenosis by Doppler. Aortic Valve: Mean gradient of 14.0 mmHg. Valve area of 1.6 cm2. Trace aortic valveregurgitation. Gradients normal for valve type and size. Normal appearing aortic valvebioprosthesis. Tricuspid Valve: Normal appearance of the tricuspid valve. Normal right ventricularsystolic pressure. Estimated peak RVSP is 25 mmHg. Mild tricuspid regurgitation. Pulmonic Valve: Normal appearance of the pulmonic valve. No pulmonic stenosis. Trivialregurgitation in the pulmonic valve. Pericardium: Normal pericardium with no significant pericardial effusion. Aorta: No aortic root dilation. IVC: Normal size and normal respiratory collapse consistent with normal rightatrial pressure (<5 mmHg). CONCLUSIONS: Normal left ventricular systolic function. No focal wall motionabnormalities. Normal left ventricular size. Mild concentric left ventricular hypertrophy.Impaired diastolic relaxation Grade I. Ejection fraction is measured at 76 %. EjectionFraction is visually estimated to be 70-75 %. Global Longitudinal Strain is -17 %. GLS isborderline. There is moderate enlargement of left atrium. Moderate mitral annular calcification. Mild mitral valve regurgitation. Mean gradient of 14.0 mmHg. Valve area of 1.6 cm2. Trace aortic valveregurgitation. Gradients normal for valve type and size. Normal appearing aortic valvebioprosthesis. Mild tricuspid regurgitation. Normal sinus rhythm. Electronically Signed By: Maxim Terrell MD 10/21/2024 5:06:26 PM CDT Bryan Nick MD CV ECHO PROCEDURES Final Result from Last 3 Months Insurance [employer] MEDICARE GOLD AETNA MEDICARE GOLD AETNA MEDICARE GOLD Advance Directives For more information, please contact: [phone] * Full Code (Latest Code Status on File) Date Activated Date Inactivated Comments 08/11/2024 3:22 PM 08/15/2024 5:44 PM * Full Code Date Activated Date Inactivated Comments 04/25/2022 12:24 PM 04/26/2022 6:21 PM Care Teams Cvir Tech Relationship Specialty Start Date End Date Radha Herman DO [address] [place] [address] PCP - General Family Medicine 12/18/21 Bryan Nick MD [address] [facility] [address] [place] [address] Referring Physician Cardiology 07/06/24 Rusty Zelaya MD [address] [facility] [address] [place] [address] Consulting Physician Cardiothoracic Surgery 07/06/24
== END 2025-01-20 14:18 | disposition home or self-care (01) ==
PROVIDERS: PCP Family Medicine; Visit Provider Internal Medicine Nephrology
DX: N18.31 Chronic kidney disease, stage 3a (principal); E55.9 Vitamin D deficiency, unspecified; E78.5 Hyperlipidemia, unspecified; I10 Essential (primary) hypertension
CPT/HCPCS: 76775

== ENCOUNTER 2025-03-21 14:43 | Outpatient (CLI) | payer MEDICARE, SELFPAY ==
--- NOTE | ~2025-03-21 | MM_ITS ---
EXAMINATION: MM screening teddy BI w dion HISTORY: Screening TECHNIQUE: Craniocaudal and mediolateral oblique 3-D tomosynthesis images were obtained and synthetic 2-D images were generated. CAD analysis was submitted and interpreted. COMPARISON: 09/04/2022 BREAST PARENCHYMAL COMPOSITION: The breasts are extremely dense, which lowers the sensitivity of mammography. FINDINGS: There is no evidence of suspicious mass, calcification, or architectural distortion to suggest malignancy. There has been no suspicious interval change. IMPRESSION: 1. No mammographic evidence of malignancy. Recommend routine screening mammography in one year. BI-RADS Category 2: Benign finding(s) Reviewed, dictated and finalized at location Q. IMPRESSION: 1. No mammographic evidence of malignancy. Recommend routine screening mammogra phy in one year. BI-RADS Category 2: Benign finding(s)
--- OUTSIDE RECORDS SUMMARY | 2025-03-21 15:43 | XMS_ITS | Clinical Summary ---
Author Organization [facility] [address] Address [address] [place] [address] Care Team Providers Care Applications Support Lead Name Role Phone Radha Herman DO Primary Care Provider + Bryan Webb MD Unavailable Rusty Zelaya MD Unavailable [phone] Allergies No known active allergies Medications famotidine (PEPCID) 20 mg tabletIndicatio ns:Heartburn Prevention Take 1 tablet (20 mg total) by mouth daily 2 Active multivitamin capsuleIndicati ons:Vitamin Deficiency Prevention Take 1 capsule by mouth daily Active calcium carbonate-vitam in D3 2,500 mg (1,000 mg elemental)-800 unit tabletIndicatio ns:Vitamin D Deficiency Take 1 tablet by mouth daily Active Lactobacillus reuteri 100 million cell tablet,chewable Take 1 tablet by mouth daily Active aspirin 81 mg enteric coated tabletIndicatio ns:prevention of thrombosis Take 1 tablet (81 mg total) by mouth daily Active atorvastatin (LIPITOR) 10 mg tabletIndicatio ns:hyperlipidem ia Take 1 tablet (10 mg total) by mouth daily 90 tablet 3 5 Active lisinopriL (PRINIVIL,ZESTR IL) 2.5 mg tablet Take 1 tablet (2.5 mg total) by mouth daily 5 Active carvediloL (COREG) 12.5 mg tabletIndicatio ns:hypertension Take 0.5 tablets (6.25 mg total) by mouth 2 (two) times a day with meals 90 tablet 1 5 Active Saccharomyces boulardii (FLORASTOR) 250 mg capsule Take 1 capsule (250 mg total) by mouth 4 Active amoxicillin (AMOXIL) 500 mg tablet/capsule Take 4 caps (2000 mg) 1 hour prior to procedure. 4 tablet/capsu le 5 Active Additional Information Patient taking differently: As needed, Take 4 caps (2000 mg) 1 hour prior to procedure., Reported on 02/01/2025 Active Problems Patient Care Coordination No te Formatting of this note migh t be different from the original. 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 She underwent TAVR valve using 20 mm Graves Merced 3 Ultra pericardial tissue valve on 04/25/2022. Surveillance echocardiogram from 01/28/2024 showed significantly elevated transaortic velocity at 4 m/sec with elevated mean gradient of 37 mmHg, rept-az-qemnawex aortic regurgitation. 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 More than 4 times per year 08/12/2024 Do you belong to any clubs o r organizations such as gnosticism groups, unions, fraternal or athletic groups, or [...] any time in the past 12 [facility], were you homeless or living in a skilled nursing (including now)? No 08/12/2024 Personal Safety Answer Date Recorded Have you ever been in or are you currently in a harmful physical or emotional relationship or is someone making you feel afraid or unsafe? 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 Gender Identity Female 03/30/2021 12:11 PM CDT Sexual Orientation Straight 03/30/2021 12 :11 PM CDT Obstetrics History Last Filed Vital Signs Vital Sign Reading Time Taken Comments Blood Pressure 124/62 02/01/2025 1:10 PM CDT Pulse 65 02/01/2025 1:10 PM CDT Temperature 36.7 C (98.1 F) 09/07/2024 10:42 AM CDT Respiratory Rate 14 02/01/2025 1:10 PM CDT Oxygen Saturation 97% 02/01/2025 1:10 PM CDT Inhaled Oxygen Concentration - - Weight 54.9 kg (121 lb) 02/01/2025 1:10 PM CDT Height 165.1 cm (5' 5) 02/01/2025 1:10 PM CDT Body Mass Index 20.14 02/01/2025 1:10 PM CDT Plan of Treatment Health Maintenance Due Date Last Done Comments Depression Screening 1945 Hepatitis C Screening 1945 Osteoporosis Screening-Bone Density Scan 1945 Hepatitis B Screening 1965 Well Visit 65+ 2012 Zoster Vaccine (3 of 3) 09/20/2019 07/26/2019, 11/30 Covid-19 Vaccine (4 - 2024-2 6 season) 2025 04/04/2021, 08/09/2020, 07/12/2020 Influenza Vaccine (#1) 2025 , 02/11/2022, 02/05/2021, Additional history exists Fall Risk Assessment 02/01/2026 02/01/2025, 08/16/19 25 DTaP/Tdap/Td Vaccine (3 - Td or Tdap) 08/06/2029 08/06/2019, 10/07/2007, 01/06/1998 Pneumococcal vaccine 65+ Completed 03/16/2015, 09/07 Medical Devices Implanted Type Area Dude Wrangler Device Identifier Shelf Expiration Date Model / Serial / Lot [employer] Device Closure Tigertape Sternal Cerclage Blunt Needle [id number] - [id number] Implanted:Qty: 2 on 08/11/2024 by Rusty Zelaya MD at [facility] Wire [employer] 06/08/2029 [id number] / / [id number] [employer] Device Clsr Perclose Prostyle Sut-Mediatd Closure-Repair Sys [id number] - [id number] Implanted:Qty: 1 on 04/25/2022 by Bryan Webb MD at [facility] [employer] [id number] / / Graves Lifesciences Valve 20mm Aortic Merced 3 Commander Graves Transcatheter Ultra Low Profile [id number] - [id number] Implanted:Qty: 1 on 04/25/2022 by Bryan Webb MD at [facility] [employer] 10/17/2024 [id number] / / [id number] Closure Inc Mynx Control 6-7fr 2 Mode Balloon Catheter Sealant Lock Syringe [id number] - [id number] Implanted:Qty: 1 on 04/25/2022 by Bryan Webb MD at [facility] [employer] 12/07/2023 [id number] / / [id number] Graves Lifesciences Inspiris Resilia Aortic Valve 21mm [id number] - [id number] - [id number] Implanted:Qty: 1 on 08/11/2024 by Rusty Zelaya MD at [facility] [employer] 02/25/2027 [id number] / [id number] / Insurance AET MEDICARE GOLD AET MEDICARE GOLD AETNA MEDICARE GOLD Advance Directives For more information, please contact: [phone] * Full Code (Latest Code Status on File) Date Activated Date Inactivated Comments 08/11/2024 3:22 PM 08/15/2024 5:44 PM * Full Code Date Activated Date Inactivated Comments 04/25/2022 12:24 PM 04/26/2022 6:21 PM Care Teams Applications Support Lead Relationship Specialty Start Date End Date Radha Herman DO [facility] [facility] [address] [place] [address] PCP - General Family Medicine 12/18/21 Bryan Webb MD [address] [facility] [address] [place] [address] Referring Physician Cardiology 07/06/24 Rusty Zelaya MD [address] [facility] [address] [place] [address] Consulting Physician Cardiothoracic Surgery 07/06/24
== END 2025-03-21 14:44 | disposition home or self-care (01) ==
LOC: ANHFOHIMG 14:46
PROVIDERS: PCP Family Medicine; Visit Provider Family Medicine
DX: Z12.31 Encounter for screening mammogram for malignant neoplasm of breast (principal)
CPT/HCPCS: 77063; 77067

== ENCOUNTER → 2025-05-03 11:26 | Outpatient (REF) | payer MEDICARE, SELFPAY ==
--- NOTE | 2025-05-03 11:26 | S_PTH ---
PATIENT: Callie Diallo LOC: [facility] U#:[id number] AGE/SX: 79/F ROOM: RE05/03/[address]: Elena Hager PA-C : 1945 BED: DIS: SPEC #: [id number] RECD: 05/03/25 12:26 STATUS: POLA REVicente #: [id number] KWESI: 05/03/25 11:[address]: Elena Hager DEPT: [facility] Surgical RECD BY: Dylon Turk ENTERED: 05/03/25 12:26 SP TYPE: Surgical OTHR DR: Radha Herman DO Tissues: A - LESION Procedures: Gross and Microscopic Level 4
--- OUTSIDE RECORDS SUMMARY | 2025-05-03 13:15 | XMS_ITS | Clinical Summary ---
Author Organization [facility] [address] Address [address] [place] [address] Care Team Providers Care Ophthalmic Lens Inspector Name Role Phone Radha Herman DO Primary Care Provider + Bryan Webb MD Unavailable Rusty Zelaya MD Unavailable [phone] Allergies No known active allergies Medications famotidine [...] with elevated mean gradient of 37 mmHg, cgxx-vn-omckxqnf aortic regurgitation. Subsequent CT heart confirmed hypoattenuating [...] Description 02/01/2025 1:30 PM CDT Office Visit [facility] Cardiology [address] [facility] [address] [facility] [place] [address] Bryan Webb MD History of transcatheter aortic [...] materials from doctor or pharmacy Sometimes 09/07/2024 [facility] Utilities Answer Date Recorded In the past [...] often do you attend chur ch or gnosticist services? More than 4 times per year 08/12/2024 Do you belong to any clubs o r organizations such as nondenominational groups, unions, fraternal or athletic groups, or [...] any time in the past 12 m [facility], were you homeless or living in a penitentiary (including now)? No 08/12/2024 Personal Safety Answer Date Recorded Have you ever been in or are you currently in a harmful physical or emotional relationship or is someone making you feel afraid or unsafe? 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 Wire [employer] 06/08/2029 [id number] / / [id number] [employer] Device Clsr Perclose Prostyle Sut-Mediatd Closure-Repair Sys [id number] - [id number] Implanted:Qty: 1 on 04/25/2022 by Bryan Webb MD at [facility] [employer] [id number] / / Graves [employer]esciences Valve 20mm Aortic Merced 3 Commander Graves Transcatheter Ultra Low Profile [id number] - [id number] Implanted:Qty: 1 on 04/25/2022 by Bryan Webb MD at [facility] [employer] 10/17/2024 [id number] / / [id number] [employer]osure Inc Mynx Control 6-7fr 2 Mode Balloon Catheter Sealant Lock Syringe [id number] - [id number] Implanted:Qty: 1 on 04/25/2022 by Bryan Webb MD at [facility] [employer] 12/07/2023 [id number] / / [id number] [employer]esciences Inspiris Resilia Aortic Valve 21mm [id number] - [id number] - [id number] Implanted:Qty: 1 on 08/11/2024 by [facility] 02/25/2027 [id number] / [id number] / Insurance AETNA MEDICARE GOLD AET MEDICARE GOLD AETNA MEDICARE GOLD Advance Directives For more information, please contact: [phone] * Full Code (Latest Code Status on File) Date Activated Date Inactivated Comments 08/11/2024 3:22 PM 08/15/2024 5:44 PM * Full Code Date Activated Date Inactivated Comments 04/25/2022 12:24 PM 04/26/2022 6:21 PM Care Teams Ophthalmic Lens Inspector Relationship Specialty Start Date End Date Radha Herman DO [facility]7 [facility] [address] [place] [address] PCP - General Family Medicine 12/18/21 Bryan Webb MD [address] [facility] [address] [place] [address] Referring Physician Cardiology 07/06/24 Rusty Zelaya MD [address] [facility] [address] [place] [address] Consulting Physician Cardiothoracic Surgery 07/06/24
== END ==
LOC: ANHLAB 11:26
PROVIDERS: PCP Family Medicine; Visit Provider Physician Assistant Surgical
DX: D49.2 Neoplasm of unspecified behavior of bone, soft tissue, and skin (principal)
CPT/HCPCS: 88305